=== PATIENT | male | born 1975 | race Caucasian/White ===

== ENCOUNTER 2019-09-04 16:13 | Emergency (ER) | payer OTHER ==
[~2019-09-04] VITALS: Ht 180.3 cm; Wt 104.3 kg
[2019-09-04] MEDS ORDERED: IBUPROFEN 800800 MG PO (17:16)
[2019-09-04] MEDS ORDERED: HYDROCODON-ACE1 EAC7 PO (17:16)
[2019-09-04] MEDS ORDERED: ZOFRAN ODT4 MG PO (17:16)
[2019-09-04 17:31] VITALS: BP 135/103
== END 2019-09-04 17:25 | disposition home or self-care (01) ==
LOC: M.ERS 16:13
DX: S82.62XA Displaced fracture of lateral malleolus of left fibula, initial encounter for closed fracture (principal); W01.0XXA Fall on same level from slipping, tripping and stumbling without subsequent striking against object, initial encounter; Y93.89 Activity, other specified; Y92.89 Other specified places as the place of occurrence of the external cause; Y99.8 Other external cause status